=== PATIENT | female | born 1935 | race Caucasian/White ===

== ENCOUNTER → 2017-12-24 | Outpatient (CLI) | payer OTHER, MEDICARE | END | disposition home or self-care (01) | LOC: CT 12:10 | PROC: BW28ZZZ Computerized Tomography (CT Scan) of Head (ICD-10-PCS; principal; 2017-12-24) | DX: R51 Headache (principal); F41.9 Anxiety disorder, unspecified; M54.9 Dorsalgia, unspecified; M99.82 Other biomechanical lesions of thoracic region ==

== ENCOUNTER → 2018-07-29 | Outpatient (CLI) | payer OTHER, MEDICARE ==
[2018-07-29 15:56] LABS: CALCIUM 8.8 mg/dL (8.5-10.1); CARBON DIOXIDE 29.4 mmol/L (21-32); CHLORIDE SERUM 106 mmol/L (98-107); CREATININE SERUM 0.9 mg/dL (0.6-1.0); GLUCOSE SERUM 88 mg/dL (74-106); POTASSIUM SERUM 4.3 mmol/L (3.5-5.1); SODIUM SERUM 143 mmol/L (136-145)
== END | disposition home or self-care (01) ==
LOC: LB 15:25
PROVIDERS: Internal Medicine Pulmonary Disease
DX: F41.9 Anxiety disorder, unspecified (principal); M54.9 Dorsalgia, unspecified; M99.82 Other biomechanical lesions of thoracic region; E78.00 Pure hypercholesterolemia, unspecified

== ENCOUNTER → 2018-08-04 | Outpatient (CLI) | payer OTHER, MEDICARE | END | disposition home or self-care (01) | LOC: CT 10:32 | PROC: BW201ZZ Computerized Tomography (CT Scan) of Abdomen using Low Osmolar Contrast (ICD-10-PCS; principal; 2018-08-04) | DX: F41.9 Anxiety disorder, unspecified (principal); M54.9 Dorsalgia, unspecified; M99.82 Other biomechanical lesions of thoracic region; E78.00 Pure hypercholesterolemia, unspecified | CPT/HCPCS: 36000; A9698; Q9967 ==

== ENCOUNTER → 2018-08-11 | Outpatient (CLI) | payer OTHER, MEDICARE | END | disposition home or self-care (01) | LOC: US 13:34 | PROC: BT43ZZZ Ultrasonography of Bilateral Kidneys (ICD-10-PCS; principal; 2018-08-11) | DX: M54.9 Dorsalgia, unspecified (principal); M99.82 Other biomechanical lesions of thoracic region ==

== ENCOUNTER → 2019-01-07 | Outpatient (CLI) | payer OTHER, MEDICARE | END | disposition home or self-care (01) | LOC: US 09:37 | PROC: BF42ZZZ Ultrasonography of Gallbladder (ICD-10-PCS; principal; 2019-01-07) | DX: K80.20 Calculus of gallbladder without cholecystitis without obstruction (principal) ==